=== PATIENT | female | born 1990 | race Caucasian/White ===

== ENCOUNTER 2016-12-14 06:38 | Inpatient (IN) | payer OTHER ==
[~2016-12-14] VITALS: Ht 172.7 cm; Wt 114.0 kg
[~2016-12-14 06:38] MED LIST: PREN1TAB13 PO
[2016-12-15 11:04] VITALS: BP 116/70; PULSE 104; RESP 20
[2016-12-15 11:37] VITALS: Ht 172.7 cm; Wt 114.0 kg
[2016-12-15] MEDS ORDERED: IBUPROFEN 600 MG TAB PO PRN (12:00)
[2016-12-15] MEDS ORDERED: OXYTOCIN 30 UNITS/LR 500 ML IV SCH ×3 (12:00)
[2016-12-15] MEDS ORDERED: METHYLERGONOVINE 0.2 MG INJ IM PRN (12:00)
[2016-12-15] MEDS ORDERED: OXYTOCIN 30 UNITS/LR 500 ML IV PRN (12:00)
[2016-12-15] MEDS ORDERED: MISOPROSTOL 200 MCG TAB PR PRN (12:00)
[2016-12-15] MEDS ORDERED: CARBOPROST 250 MCG INJ IM PRN (12:00)
[2016-12-15] MEDS ORDERED: BUTORPHANOL 2 MG INJ IV PRN (12:00)
[2016-12-15] MEDS ORDERED: LIDOCAINE 1% (MPF) 30 ML INJ INJ PRN (12:00)
[2016-12-15 12:01] LABS: ADD SCAN DIFF NO
[2016-12-15 12:14] LABS: INR 0.92; PROTIME 12.4 Sec (12.2-14.2)
[2016-12-15 12:15] LABS: PARTIAL THROMBOPLASTIN TIME 26.5 Sec (25.0-35.0)
[2016-12-15] MEDS: LACTATED RINGER'S 1,000 ML IV SCH ×4 (12:20→22:31)
[2016-12-15 12:25] LABS: BASOPHILS % 0.3 % (0.0-2.0); EOSINOPHILS # 0.1 10^3/ul (0.0-0.5); EOSINOPHILS % 1.3 % (0.0-7.0); HEMATOCRIT 35.6 % (37.0-47.0); HEMOGLOBIN 11.3 g/dl (12.0-16.0); LYMPHOCYTES # 1.9 10^3/ul (0.8-2.9); LYMPHOCYTES % 18.2 % (15.0-51.0); MEAN CORPUSCULAR HEMOGLOBIN 27.4 pg (29.0-33.0); MEAN CORPUSCULAR HGB CONC 31.7 g/dl (32.0-37.0); MEAN CORPUSCULAR VOLUME 86.2 fl (82.0-101.0); MEAN PLATELET VOLUME 12.8 fl (7.4-10.4); MONOCYTE # 0.7 10^3/ul (0.3-0.9); MONOCYTES % 6.5 % (0.0-11.0); NEUTROPHIL # 7.5 10^3/ul (1.6-7.5); PLATELET COUNT 285 10^3/UL (140-415); RED BLOOD COUNT 4.13 10^6/ul (4.20-5.40); RED CELL DISTRIBUTION WIDTH 13.3 % (11.5-14.5); WHITE BLOOD COUNT 10.3 10^3/ul (4.8-10.8)
[2016-12-15] MEDS ORDERED: LACTATED RINGER'S 1,000 ML IV PRN (13:00)
[2016-12-15] MEDS ORDERED: LACTATED RINGER'S 1,000 ML IV ONE (16:57)
[2016-12-15] MEDS ORDERED: DIPHENHYDRAMINE 50 MG INJ IV PRN (17:00)
[2016-12-15] MEDS ORDERED: ONDANSETRON 4 MG INJ IV PRN (17:00)
[2016-12-15] MEDS ORDERED: CITRIC ACID/NA CITRATE 30 ML CUP PO ONE (17:00)
[2016-12-15] MEDS ORDERED: morphine 2 MG INJ IV PRN ×2 (17:00)
[2016-12-15] MEDS ORDERED: PROCHLORPERAZINE 10 MG INJ IV PRN (17:00)
[2016-12-15] MEDS ORDERED: KETOROLAC 30 MG INJ IV PRN (17:00)
[2016-12-15] MEDS ORDERED: FENTAnyl 2MCG/ML-ROPIV 0.2% 100 ML BAG EPI SCH ×2 (17:00)
[2016-12-15] MEDS ORDERED: NALOXONE (0.4 MG/ML) INJ IV PRN (17:00)
[2016-12-15] MEDS ORDERED: ONDANSETRON 4 MG INJ IV ONE (17:00)
[2016-12-15] MEDS ORDERED: FENTAnyl 2MCG/ML-ROPIV 0.2% 100 ML ONE (17:03)
[2016-12-15] MEDS ORDERED: ACETAMINOPHEN 500 MG TAB PO STA (22:19)
[2016-12-16] MEDS ORDERED: OXYTOCIN 30 UNITS/LR 500 ML IV SCH (01:10)
[2016-12-16] MEDS ORDERED: LANOLIN 7 GM TUBE TOP PRN (01:30)
[2016-12-16] MEDS ORDERED: MISOPROSTOL 200 MCG TAB PR PRN (01:30)
[2016-12-16] MEDS ORDERED: OXYTOCIN 30 UNITS/LR 500 ML IV PRN (01:30)
[2016-12-16] MEDS ORDERED: OXYCODONE/ASPIRIN (4.88/325) TAB PO PRN (01:30)
[2016-12-16] MEDS ORDERED: CARBOPROST 250 MCG INJ IM PRN (01:30)
[2016-12-16] MEDS ORDERED: METHYLERGONOVINE 0.2 MG INJ IM PRN (01:30)
[2016-12-16 03:15] VITALS: BP 107/62; PULSE 107; RESP 19
[2016-12-16] MEDS ORDERED: ACETAMINOPHEN 325 MG TAB PO PRN (03:30)
[2016-12-16] MEDS: LACTATED RINGER'S 1,000 ML IV* SCH ×3 (05:31→17:10)
[2016-12-16] MEDS: IBUPROFEN 600 MG TAB PO SCH ×3 (05:33→17:13)
[2016-12-16 08:14] VITALS: BP 110/63; PULSE 123; RESP 21
[2016-12-16 12:26] VITALS: BP 115/72; PULSE 93; RESP 20
[2016-12-16 16:00] VITALS: BP 117/73; PULSE 75; RESP 18
[2016-12-16 17:18] VITALS: BP 115/72; PULSE 93; RESP 20
[2016-12-16 19:40] VITALS: BP 127/74; PULSE 72; RESP 18
--- NOTE | 2016-12-16 21:26 | LDN ---
Date/Time of Note Date/Time of Note DATE: 12/16/16 TIME: 21:23 Delivery Summary over an intact perineum of a viable baby boy weighing 4030 grams, or 8# 14oz, 21" long, and with Apgars of 8/9. Weeks of Gestation 40w 1d Placenta Delivered: Spontaneously Meconium: none Episiotomy: No Perineal laceration: 0 Anesthesia type: Epidural Estimated blood loss: 200 Sponge & Needle done & correct: Yes All needle counts correct: Yes Any foreign bodies felt in the: No Problems: Infant Delivery Information Sex Sex: male Apgars 1 Minute: 8 5 Minute: 9 Suctioning Delee suction performed: No Umbilical Cord Umbilical cord with: 3 Vessels Cord presentations: nuchal cord Nuchal cord present X: 1 Cord Blood was obtained: Yes Mother & Baby Disposition Disposition Mom & Baby to Maternity; Good: Yes Baby to NICU: No MERY SLAUGHTER MD Dec 16, 2016 21:26
--- NOTE | 2016-12-16 21:31 | HP ---
Date/Time of Note Date/Time of Note DATE: 12/16/16 TIME: 21:26 OB - History Hx of Present Free Text/Dictation 26 y.o. with an IUP at 40 weeks 1 day sent from the office as her cervix was noted to be 5-6 cm dilated even though she was not experiencing any contractions and the baby's head was high at -3 reed and ballotable. Last Menstrual Period: Mar 09, 2016 Estimated Due Date: Dec 14, 2016 : 2 Para: 1 Care: Good Care Ultrasounds: Normal mid trimester US Obstetrical Complications: None Medical Complications: None Past Family/Social History * Past Medical, Surgical, Family and Obstetric Histories reviewed from chart. Blood Type: O+ Rubella: immune RPR/VDRL: Negative GBS Status: Negative HBsAG: Negative OB Admission Exam Vital Signs Vital Signs Vital Signs Date Time Temp Pulse Resp B/P Pulse Ox O2 Delivery O2 Flow Rate FiO2 12/16/16 19:40 98.4 72 18 127/74 Room Air Physical Exam HEENT: WNL Heart: Rhythm Normal Lungs: Clear Abdomen: WNL Extremities: Edema (2+) Reflexes: Normal Cervical Dilatation: 6cm Effacement: 75% Station: Ballotable Membranes: Intact Amniotic Fluid: Clear Heart Rate: 140's Accelerations: Accelerations Present Decelerations: Variable Decelerations Varibility: Moderate Contractions on Admission: >10 Minutes Apart Last 72 hours Lab Results CBC & BMP 12/15/16 11:41 OB Assessment/Plan Reason for admission: induction of labor Plan: Induction Induction Method: per Pitocin Protocol MERY SLAUGHTER MD Dec 16, 2016 21:31
[2016-12-17] MEDS: IBUPROFEN 600 MG TAB PO SCH ×4 (00:13→17:57)
[2016-12-17 04:15] VITALS: BP 101/59
[2016-12-17 07:45] VITALS: BP 112/68; PULSE 93; RESP 18
[2016-12-17 08:03] LABS: ADD SCAN DIFF NO
[2016-12-17 08:09] LABS: BASOPHILS % 0.3 % (0.0-2.0); EOSINOPHILS # 0.3 10^3/ul (0.0-0.5); EOSINOPHILS % 2.2 % (0.0-7.0); HEMATOCRIT 30.9 % (37.0-47.0); HEMOGLOBIN 9.6 g/dl (12.0-16.0); LYMPHOCYTES # 3.2 10^3/ul (0.8-2.9); LYMPHOCYTES % 21.4 % (15.0-51.0); MEAN CORPUSCULAR HEMOGLOBIN 27.4 pg (29.0-33.0); MEAN CORPUSCULAR HGB CONC 31.1 g/dl (32.0-37.0); MEAN CORPUSCULAR VOLUME 88.3 fl (82.0-101.0); MEAN PLATELET VOLUME 12.4 fl (7.4-10.4); NEUTROPHIL # 10.1 10^3/ul (1.6-7.5); NEUTROPHILS % 68.2 % (39.0-77.0); PLATELET COUNT 252 10^3/UL (140-415); RED CELL DISTRIBUTION WIDTH 14.4 % (11.5-14.5); WHITE BLOOD COUNT 14.8 10^3/ul (4.8-10.8)
[2016-12-17 12:00] VITALS: BP 126/68; PULSE 86; RESP 18
[2016-12-17 16:00] VITALS: BP 107/59; PULSE 86; RESP 18
--- NOTE | 2016-12-17 17:53 | PD.PPDC ---
[employer]PER[employer]OR Discharge Instruction Condition Patient Condition: Good Diet Diet: Resume Regular Diet Activity/Restrictions Activity: Normal Activity May Shower Restrictions: No Sexual Activity Nothing in the Vagina No [place] No Tampons, douche Follow-up Follow-up with Physician: 6, Week/Weeks Return to clinic for [employer] WORKER Instructions: Fever greater than 101 Chills Worsening abdominal pain Excessive Vaginal Bleeding OB Instructions: Breast Tenderness Depression MERY SLAUGHTER MD Dec 17, 2016 17:52
--- NOTE | 2016-12-17 17:55 | DS ---
Date/Time of Note Date/Time of Note DATE: 12/17/16 TIME: 17:54 Obstetrical Discharge Record Final Diagnosis Final Diagnosis: Term delivered Vaginal Delivery Obstetrical Delivery: Spontaneous Complications Augmentation: Yes Induction: No Condition on Discharge Physical Assessment Last Vitals: T= 97.8 BP 107/59 Voiding: Yes Bowel Movement: Yes Breast: Soft, non-tender Fundus: Firm Calf Tenderness: No Patient Condition: Good MERY SLAUGHTER MD Dec 17, 2016 17:55
[2016-12-17 20:00] VITALS: BP 117/70; PULSE 94; RESP 18
[2016-12-18 04:00] VITALS: BP 119/71; PULSE 98; RESP 17
[2016-12-18] MEDS: IBUPROFEN 600 MG TAB PO SCH ×2 (05:29)
[2016-12-18 08:25] VITALS: BP 117/66; PULSE 91; RESP 17
[2016-12-18] MEDS ORDERED: DIPHTH/TET/ACEL PERTUSS (ADULT) 0.5 ML VIAL IM* ONE (09:00)
== END 2016-12-18 14:29 | disposition home or self-care (01) | DRG 775 ==
LOC: EDSTATUS 10:35 → L-D 12-15 10:38 → PP1 12-16 02:56
PROVIDERS: ADMIT Obstetrics & Gynecology; ATTEND Obstetrics & Gynecology
PROC: 10E0XZZ Delivery of Products of Conception, External Approach (ICD-10-PCS; principal; 2016-12-16)
DX: O48.0 Post-term pregnancy (principal); E66.01 Morbid (severe) obesity due to excess calories; Z3A.40 40 weeks gestation of pregnancy; O99.214 Obesity complicating childbirth; Z68.38 Body mass index [BMI] 38.0-38.9, adult; O69.81X0 Labor and delivery complicated by cord around neck, without compression, not applicable or unspecified; Z37.0 Single live birth
CPT/HCPCS: 62319; 85025; 85610; 85730; 86592; 86900; 86901; 90715; 99464; J2590; J3010; J7120